=== PATIENT | male | born 1950 | race Caucasian/White ===

== ENCOUNTER 2021-04-07 12:56 | Emergency (ER) | payer OTHER ==
[~2021-04-07] VITALS: Ht 167.6 cm; Wt 94.3 kg
[~2021-04-07 12:56] MED LIST: ASPIR 8181 MG PO; CRESTOR10 MG PO; IMDUR 30 MG TAB30 M1 PO; KEFLEX500 MG PO; NORCO 5-325 TA1 EACH PO
[2021-04-07] MEDS ORDERED: TOPROL XL25 MG PO (13:12)
[2021-04-07] MEDS ORDERED: PRAVASTATIN SOD80 MG PO (13:12)
[2021-04-07] MEDS ORDERED: PLAVIX 75 MG TA75 MG PO (13:13)
[2021-04-07] MEDS ORDERED: FLONASE 0.05%50 MCG NARES (13:13)
[2021-04-07] MEDS ORDERED: NORVASC5 M1 PO (13:13)
[2021-04-07] MEDS ORDERED: CIALIS5 MG PO (13:14)
[2021-04-07] MEDS ORDERED: TESTIM5 GM (13:14)
[2021-04-07] MEDS ORDERED: NORCO5 PO (13:54)
[2021-04-07] MEDS ORDERED: CEPHALEXIN500 MG PO (13:58)
[2021-04-07 14:06] VITALS: BP 132/71
== END 2021-04-07 14:07 | disposition home or self-care (01) ==
LOC: M.ERS 12:56
DX: S81.812A Laceration without foreign body, left lower leg, initial encounter (principal); Z98.890 Other specified postprocedural states; Z90.89 Acquired absence of other organs; W26.8XXA Contact with other sharp object(s), not elsewhere classified, initial encounter; Y93.89 Activity, other specified; Y92.89 Other specified places as the place of occurrence of the external cause; Y99.8 Other external cause status

== ENCOUNTER 2021-04-21 10:57 | Emergency (ER) | payer OTHER ==
[~2021-04-21] VITALS: Ht 167.6 cm; Wt 93.0 kg
[~2021-04-21 10:57] MED LIST changes: +CEPHALEXIN500 MG PO; +CIALIS5 MG PO; +FLONASE 0.05%50 MCG NARES; +NORCO5 PO; +NORVASC5 M1 PO; +PLAVIX 75 MG TA75 MG PO; +PRAVASTATIN SOD80 MG PO; +TESTIM5 GM; +TOPROL XL25 MG PO
[2021-04-21 12:01] VITALS: BP 140/65
== END 2021-04-21 12:02 | disposition home or self-care (01) ==
LOC: M.ERS 10:57
DX: S91.012D Laceration without foreign body, left ankle, subsequent encounter (principal); W22.8XXD Striking against or struck by other objects, subsequent encounter; Z79.899 Other long term (current) drug therapy